=== PATIENT | female | born 2005 | race African-American/Black ===

== ENCOUNTER 2023-11-17 10:01 | Inpatient (IN) | payer BC, SELFPAY ==
[2023-11-16 20:24] VITALS: BP 141/104
--- NOTE | 2023-11-16 20:40 | ED.GENMED ---
History of Present Illness
General
Chief Complaint: Overdose Intentional
Source: patient
Exam Limitations: none
Time Seen by Provider: 11/16/23 20:29
Nursing documentation reviewed up to this point in time: agreed with
History of Present Illness
History of Present Illness:
18-year-old female presents emergency room complaining of overdose of Concerta 15 x 27mg pills, total of 405 mg at 5 pm. Complains of feeling tired. This was a suicide attempt, for which she has had prior. She took her normal medications, Effexor
150 mg and Abilify, and her normal dose of Concerta at 8 AM.
Past History
Past History
ED Past Medical History: Psychiatric (ADHD, bipolar, anxiety, depression)
ED Past Surgical History: None
Social History
Tobacco: Non-smoker
Alcohol: None
Drug: None
Living: with family
Review of Systems
Review of Systems
Allergies reviewed?: Yes
All Other Systems: Not applicable
Constitutional: Reports fatigue
EENT: Reports no symptoms
Respiratory: Reports no symptoms
Cardiac: Reports no symptoms
ABD/GI: Reports no symptoms
: Reports no symptoms
Musculoskeletal: Reports no symptoms
Skin: Reports no symptoms
Neurological: Reports no symptoms
Endocrine: Reports no symptoms
Hematologic/Lymphatic: Reports no symptoms
Psychiatric: Reports no symptoms
Phy Exam
Physical Exam
Physical Exam:
Physical Exam
General: no apparent distress, not acutely ill
Neck: supple. no meningeal signs. normal posterior pharynx
Heart: s1/s2 tachycardia, regular rhythm, no murmur. equal radial
pulses.
HEENT: Pupils equal round reactive to light, EOMI
Lungs: no acute respiratory distress. clear bilaterally
Abdomen: normal bowel sounds. not tender. no CVAT
Neuro: alert and oriented. no focal neurological deficits cranial nerves II through XII intact
Skin: no rash
Psychiatric: well kept. interactive and cooperative
Extremities: no edema. no calf tenderness. negative homans. good distal pulses
Course
Orders/Labs/Results
Orders:
Orders
11/16/23 20:32
Electrocardiogram (*1) Stat
Reason for Study: Other
Other Reason for Exam: overdose
EKG- Treatment ONCE
Acetaminophen Urgent
Alcohol Urgent
Complete Blood Count/With Diff Urgent
Comprehensive Metabolic Panel Urgent
HCG, Serum Qualitative Screen Urgent
Salicylate Urgent
11/16/23 20:33
Electrocardiogram (*1) Urgent
Reason for Study: Other
Other Reason for Exam: overdose
Urine Drug Abuse Screen Urgent
Test Result ONCE
11/16/23 20:34
Cardiac Monitoring- Treatment ONCE
IV Insert/Care/Rem.- Treatment PRN
11/16/23 20:55
0.9% Sodium Chloride 1000 ml [Nss] 1,000 ml IV BOLUS
Lorazepam [Ativan] 1 mg IV NOW STA
Vital Signs
Initial and Last Documented VS:
Initial Vital Signs
Temp Pulse Resp BP Pulse Ox
99.7 F 119 20 141/104 98
11/16/23 20:24 11/16/23 20:24 11/16/23 20:24 11/16/23 20:24 11/16/23 20:24
Last Documented Vital Signs
Temp Pulse Resp BP Pulse Ox
99.7 F 119 20 141/104 98
11/16/23 20:24 11/16/23 20:24 11/16/23 20:24 11/16/23 20:24 11/16/23 20:24
MDM/Problems Addressed
Differential Diagnosis Includes:
suicide attempt, methyphenidate overdose
MDM/Problems Addressed:
18 yo female with methylphenidate overdose. Patient with tachycardia. Discussed with toxicology, recommends IV fluids, Ativan and admission.
Chronic conditions affecting care: Psychiatric illness (Depression, bipolar, ADHD)
Acute Exacerbation and/or Progression of Chronic Illness: Psychiatric illness (Depression, bipolar, ADhd)
*Pulse Oximetry
Patient hypoxic: no
*EKG
Interpreted by ED Provider?: Yes
EKG Intrepretation Date: 11/16/23
EKG Intrepretation Time: 20:36
Interpretation: abnormal
Comparison EKG: no comparison EKG present
Heart Rate: 120
Rate: tachycardiac
Rhythm: sinus tachycardia
Pierson: normal axis
Interval: normal interval
QRS Pattern: normal QRS
Ischemia: no ischemia
*Line Up Machine Operator Interpretation
Rate: tachycardiac
Interpretation: abnormal
Heart Rate: 115
Rhythm: sinus tachycardia
*Critical Care Note
Total Time (30-74mins, 75-104mins- exclusive of procedures): 30
comment:
Critical care statement: A total of 30 minutes of critical care time was provided for this patient. This includes management of unstable vital signs, evaluation of the patient at bedside, reviewing the patient's pertinent medical records, discussion
with consultants, review of old EKGs and review of pertinent medical records. This time with separate from time utilized to perform the aforementioned documented procedures
Patient Management
Social determinants of health affecting care: Living situation and Strong social support
Discussion with other providers: Hospitalist and Clerk To Justice (Toxicology Dr Peng)
Escalation/DeEscalation of care consider admission/obs:
admit to ICU indicated
ED Attending Note
-
Portions of this chart may have been created with voice recognition software.� Occasional wrong word or��sound alike� substitutions may have occurred due to the inherent limitations of voice recognition software.
Discharge Plan
Departure
Admit to: ICU
Presentation/result/management discussed w/ accepting MD/DO: Hospitalist
Patient with high blood pressure during this ER visit?: Yes
Condition: Good
Discharge Problem:
Overdose of methylphenidate, Regular sinus tachycardia
Prescriptions:
No Action
venlafaxine 150 mg capsule,extended release 24hr
150 mg PO DAILY
methylphenidate HCl 27 mg Tablet Extended Release 24hr
27 mg PO DAILY
Patient Comments:
11/16/2023: last filled 11/15/23, 15 tabs [facility]
aripiprazole 10 mg tablet
10 mg PO DAILY
Interventions
Interventions:
*Risk Screen - Suicide Last Done: 11/16/23 20:55
*General Assessment Last Done: 11/16/23 20:55
*Neglect/Abuse Screening Last Done: 11/16/23 20:55
*ED COVID-19 Vaccine History Last Done: 11/16/23 20:55
Discharge Date and Time
Print Language: TURKMEN
[2023-11-16 20:53] VITALS: BP 125/82
[2023-11-16 20:54] VITALS: BMI 27.5
[2023-11-16 21:00] VITALS: BP 123/81
[2023-11-16] MEDS: NSS 1000 IV (21:00)
[2023-11-16] MEDS: ATIVAN 1 MG IV (21:00)
[2023-11-16 21:07] LABS: % Basophils 0.5 % (0-2); % Eosinophils 0.4 % (0-6); % Immature Granulocytes 0.4 % (0-0.5); % Lymphocytes 35.1 % (20.5-51.1); % Monocytes 5.3 % (1.7-9.3); % Neutrophils 58.3 % (42.2-75.2); Absolute Basophils 0.1 10^3/uL (0-0.2); Absolute Lymphocytes 3.3 10^3/uL (1.2-3.4); Absolute Monocytes 0.5 10^3/uL (0.1-0.6); Absolute Neutrophils 5.5 10^3/uL (1.4-6.5); Hematocrit 39.1 % (37.0-47.0); Hemoglobin 13.5 g/dL (12.0-16.0); Mean Corp Hgb Conc. 34.5 g/dL (33.0-37.0); Mean Corpuscular Hgb 29.9 pg (27.0-31.0); Mean Corpuscular Volume 86.7 fL (81.0-99.0); Nucleated Red Blood Cells % 0 %; Platelet Count 343 10^3/uL (130-400); Red Blood Cell Count 4.51 10^6/uL (4.20-5.40); Red Cell Dist. Width 12.9 % (11.5-14.5); White Blood Cell Count 9.4 10^3/uL (4.8-10.8)
[2023-11-16 21:30] LABS: ALT (SGPT) 21 U/L (0-35); AST (SGOT) 34 U/L (14-36); Acetaminophen < 10 ug/ml (10-30); Albumin 5.3 g/dl (3.5-5.0); Alkaline Phosphatase 98 U/L (38-126); Blood Urea Nitrogen 8 mg/dl (7-17); Calcium 10.6 mg/dl (8.4-10.2); Carbon Dioxide 25 mmol/L (22-30); Chloride 103 mmol/L (98-107); Estimated Creatinine Clearance 98 ml/min; Glucose 105 mg/dl (70-99); Potassium 3.4 mmol/L (3.5-5.1); Salicylate < 1.0 mg/dl (2.0-20.0); Sodium 142 mmol/L (135-145); Total Bilirubin 0.6 mg/dl (0.2-1.3); Total Protein 8.1 g/dl (6.3-8.2); eGFR > 60.00
[2023-11-16 21:34] LABS: Alcohol None Detected
[2023-11-16 21:47] LABS: HCG, Serum Qualitative Screen Negative
[2023-11-16 22:00] VITALS: BP 118/80
--- NOTE | 2023-11-16 22:23 | HPS.HSE ---
Family Physician
-
Family Physician: NOT KNOW UNKNOWN - PT DOES
Chief Complaint
-
overdose
History of Present Illness
18-year-old female past medical history of suicide attempts, ADHD, bipolar disorder, anxiety/depression, presenting with intentional overdose of methylphenidate by taking 15 of 27 mg pills at 5 PM. She had an argument with her family because she
wants to attend a different college and does not want to live at home. She denied overdosing on aripiprazole or venlafaxine. Her psychiatrist recently increased the dose of methylphenidate within the past week. She regularly has suicidal thoughts
but states that her mood has not been too bad. Her psychiatrist is Dr. Swain.
She feels tired at this time but denies any chest pain. She feels short of breath when she was crying earlier. She also had some dizziness and fatigue. She denies any palpitations. She denies any tremors. Denies any nausea vomiting or diarrhea
or abdominal pain.
She smokes marijuana few times a week. She drinks alcohol twice a week sometimes up to 3-4 drinks at a time. She denies smoking.
Medical History
Past Medical History
Past Medical History: Reports Other (suicide attempts, ADHD, bipolar disorder, anxiety/depression)
Past Surgical History: Reports None
Social History
Tobacco: Non-smoker
Alcohol: Occasional
Drug: Marijuana
Family History
Family History: Not pertinent
Allergies / Home Medications
Allergies reflects when Allergies were last updated in [employer].
Home Medications with original date entered in [employer]
Allergy/Medication List:
Allergies
Allergy/AdvReac Type Severity Reaction Status Date / Time
No Known Allergies Allergy Verified 11/16/23 20:24
Home Medications
aripiprazole 10 mg tablet 10 mg PO DAILY 11/16/23
methylphenidate HCl 27 mg tablet,extended release 24 hr 27 mg PO DAILY 11/16/23
venlafaxine 150 mg capsule,extended release 24 hr 150 mg PO DAILY 11/16/23
Review of Systems
-
History Source: Patient
A 12 point ROS was completed and negative except as noted: Yes
Constitutional: Reports No Symptoms
EENT: Reports No Symptoms
Respiratory: Reports No Symptoms
Cardiac: Reports No Symptoms
Abdomen/GI: Reports No Symptoms
: Reports No Symptoms
Musculoskeletal: Reports No Symptoms
Skin: Reports No Symptoms
Neurological: Reports No Symptoms
Endocrine: Reports No Symptoms
Hematologic/Lymphatic: Reports No Symptoms
Psych: Reports No Symptoms
Physical Exam
Vital Signs
Vital Signs
Temp Pulse Resp BP Pulse Ox
99.7 F 115 17 118/80 100
11/16/23 20:24 11/16/23 22:00 11/16/23 22:00 11/16/23 22:00 11/16/23 22:00
Physical Exam
General: Well Developed, Well Nourished and No Apparent Distress
HEENT: NormoCephalic, Moist mucous membranes and Atraumatic
Respiratory: Clear
Cardiac: S1/S2 and Regular Rhythm; No Murmur or Rub
GI: Soft, Non Tender, Non Distended and Normal Bowel Sounds; No Organomegaly
Rectal: Deferred by Provider
Musculoskeletal: No Clubbing, No Cyanosis and No Edema
Skin: No Rash
Neuro: Nonfocal/grossly intact
Laboratory Results
-
11/16/23 20:51
11/16/23 20:51
Laboratory Results
Total Bilirubin 0.6 mg/dl (0.2-1.3) 11/16/23 20:51
AST 34 U/L (14-36) 11/16/23 20:51
ALT 21 U/L (0-35) 11/16/23 20:51
Alkaline Phosphatase 98 U/L (38-126) 11/16/23 20:51
Data Reviewed
-
Lab Data: Labs Reviewed by me
Old Records: Reviewed
Impression/Plan
-
IMPRESSION:
PLAN:
# Methylphenidate overdose suicide attempt
-Alcohol level negative
-Tylenol, salicylates negative
-UDS pending
-EKG shows sinus tachycardia, T wave inversions in leads V1 to V3, no prior EKG available
-Check troponin
-[facility] recommended IV fluids, and as needed Ativan
-Monitor for seizures, agitation
-One-to-one sitter
-Psychiatry consulted
# Hypokalemia secondary to methylphenidate overdose
-Replete potassium
History of ADHD
-Hold methylphenidate
Bipolar/anxiety/depression
-Hold aripiprazole, venlafaxine
Full code
DVT prophylaxis�SCDs
Regular diet
[2023-11-16] MEDS: KCL 40 MEQ PO (22:33)
[2023-11-16 23:00] VITALS: BP 139/85
[2023-11-16 23:03] LABS: Amphetamines Negative (Negative); Barbiturates Negative (Negative); Benzodiazepines Negative (Negative); Buprenorphine Negative (Negative); Cocaine Negative (Negative); Methamphetamines Negative (Negative)
[2023-11-16 23:04] LABS: Marijuana Positive (Negative); Methadone Negative (Negative); Opiates Negative (Negative); Phencyclidine Negative (Negative); Tricyclic Antidepressants Negative (Negative)
--- NOTE | 2023-11-16 23:50 | PTCARENOTE ---
rec`d pt from ED at 2330. pt very pleasant. pt still states she is suicidal. pt placed on a 1-1. pt can be tearful at times. pt states she smokes marijuana about 4 times a week. also drinks alcohol a few times a month. last alcoholic beverage was
nov 11. last time pt smoked marijuana was date of admission, nov 15. aaox3. ST on monitor. rt AC 20 placed in ED. NS running at 100. no edema. RA, clear lungs, POX 98%. skin c/d/i. pt`s mother at bedside. call hodges in reach, safe environment
maintained.
[2023-11-17] VITALS (17 sets, daily range): BP systolic 105–130; BP diastolic 57–89; BMI 27.9
[2023-11-17] MEDS: NSS 1000 IV ×2 (00:52→10:11)
--- NOTE | 2023-11-17 04:00 | PTCARENOTE ---
pt reassessed. no changes in pt assessment. call hodges in reach. brother at bedside. 1-1 also at bedside.
[2023-11-17 05:06] LABS: INR 1.01; PT 13.3 Sec (11.4-14.6)
[2023-11-17 05:10] LABS: % Basophils 0.5 % (0-2); % Eosinophils 0.1 % (0-6); % Immature Granulocytes 0.3 % (0-0.5); % Lymphocytes 21.9 % (20.5-51.1); % Monocytes 5.3 % (1.7-9.3); % Neutrophils 71.9 % (42.2-75.2); Absolute Basophils 0.1 10^3/uL (0-0.2); Absolute Lymphocytes 2.1 10^3/uL (1.2-3.4); Absolute Monocytes 0.5 10^3/uL (0.1-0.6); Hematocrit 37.1 % (37.0-47.0); Mean Corpuscular Hgb 29.8 pg (27.0-31.0); Mean Corpuscular Volume 85.1 fL (81.0-99.0); Nucleated Red Blood Cells % 0 %; Platelet Count 350 10^3/uL (130-400); Red Blood Cell Count 4.36 10^6/uL (4.20-5.40); White Blood Cell Count 9.8 10^3/uL (4.8-10.8)
[2023-11-17 05:26] LABS: ALT (SGPT) 19 U/L (0-35); AST (SGOT) 33 U/L (14-36); Alkaline Phosphatase 81 U/L (38-126); Blood Urea Nitrogen 8 mg/dl (7-17); Calcium 10.3 mg/dl (8.4-10.2); Carbon Dioxide 21 mmol/L (22-30); Chloride 106 mmol/L (98-107); Estimated Creatinine Clearance 112 ml/min; Glucose 115 mg/dl (70-99); Potassium 4.2 mmol/L (3.5-5.1); Sodium 137 mmol/L (135-145); Total Bilirubin 0.8 mg/dl (0.2-1.3); eGFR > 60.00
--- NOTE | 2023-11-17 07:20 | PTCARENOTE ---
recd 1:1 family bedside. assessed, questions answered, plans of care reviewed. pupils large, 5 mm, reactive. no distress.
--- NOTE | 2023-11-17 09:39 | CON.INTV ---
Consultation
Consultation Request
Date/Time Consultation Requested: 11/16/20232330
Date/Time Consultation Performed: 11/17/2023821
Requesting Provider: ROSEY Hernandez
Performing Provider: Asad Dyer MD
Reason for Consultation: Methylphenidate overdose
Medical History
-
Chief Complaint: 'I tried to kill myself'
History of Present Illness:
18-year-old female with a past medical history of ADHD, depression/bipolar disorder who presents with suicidal attempt. She reportedly took 15 pills of 27mg Concerta 5 PM prior to arrival. She purposely took it trying to kill herself. She was
tachycardic to 122 in triage, breathing at 20-24 breaths/min, BP 141/104, afebrile to 99.7 �F and saturating 98% on room air. Labs showed hypokalemia to 3.4, glucose 105, beta-hCG negative. UDS showed positive marijuana and negative alcohol level.
ER spoke with police reserves commander, Dr. Peng -recommended IVF, prn Ativan and admission with close monitoring. She was admitted to the ICU for further monitoring, and critical care services consulted for additional management/recommendations.
Pt was seen and evaluated this morning. HR 82, BP 130/89. On RA breathing comfortably. On NS at 100cc/hr. Pt's mother , Vivienne, at bedside. All questions were answered. Patient currently feels well, denies shakiness, headache, shortness of
breath, chest pain, nausea, fevers or chills. Earlier she endorsed dizziness and fatigue.
PMHx: ADHD, anxiety, bipolar disorder
PSHx: Non-contributory
Past Medical History
Past Medical History: Other (Above as per HPI)
Past Surgical History: Other (Above as per HPI)
Social History
Tobacco: Non-smoker
Alcohol: Occasional
Drug: Marijuana
Personal: Single
Living: With Family
Family History
Family History: Reviewed & Not Pertinent
Allergies / Home Medications
Allergies
Allergy/AdvReac Type Severity Reaction Status Date / Time
No Known Allergies Allergy Verified 11/16/23 20:24
Home Medications
�Medication �Instructions �Recorded �Confirmed �Last Taken �Type
aripiprazole 10 mg tablet 10 mg PO DAILY Mental 11/16/23 11/16/23 Unknown History
Health/Anxiety
methylphenidate HCl 27 mg 27 mg PO DAILY Mental 11/16/23 11/16/23 Unknown History
tablet,extended release 24 hr Health/Anxiety
venlafaxine 150 mg 150 mg PO DAILY Mental 11/16/23 11/16/23 Unknown History
capsule,extended release 24 hr Health/Anxiety
Review of Systems
-
History Source: Patient
All other systems: Negative unless noted (12 point ROS performed and is negative unless mentioned above.)
Vitals / Labs / Diagnostic Testing
Vital Signs
Temp Pulse Resp BP Pulse Ox
98.9 F 100 20 118/69 98
11/17/23 07:45 11/17/23 07:15 11/17/23 07:15 11/17/23 07:00 11/17/23 07:39
Lab Data
11/17/23 04:43
11/17/23 04:43
Laboratory Results
11/17/23
04:43
PT 13.3
INR 1.01
APTT 27.0
Diagnostic Testing:
Physical Exam
-
HEENT: Normocephalic, Anicteric and Moist Mucous Membranes
Cardiovascular: S1/S2 and Peripheral Edema (Negative)
Respiratory: Clear, Wheeze (Negative), Rales (Negative), Rhonchi (Negative) and Non-Labored Respirations
GI: Soft, Non Distended, Non Tender and Normal Bowel Sounds
Neurology: AO x 3 and Tremors (Negative)
Skin: Warm and Dry
General: Respiratory Distress (Negative), Comfortable, Fever (Negative), Chills (Negative) and Sweats (Negative)
Assessment
-
Assessment: 18-year-old female with a past medical history of ADHD, depression/bipolar disorder who presents with suicidal attempt. She reportedly took 15 pills of 27mg Concerta 5 PM prior to arrival. She purposely took it trying to kill herself.
She was tachycardic to 122 in triage, breathing at 20-24 breaths/min, BP 141/104, afebrile to 99.7 �F and saturating 98% on room air. Labs showed hypokalemia to 3.4, glucose 105, beta-hCG negative. UDS showed positive marijuana and negative
alcohol level. ER spoke with police reserves commander, Dr. Peng -recommended IVF, prn Ativan and admission with close monitoring. She was admitted to the ICU for further monitoring, and critical care services consulted for additional
management/recommendations.
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
Impression:
#Suicide attempt with intentional overdose of methylphenidate ER
#Marijuana use
#ADHD on Concerta
#Anxiety
#Bipolar disorder
Plan:
- Patient doing well this morning however still with occasional tachycardia with heart rate >100
- Give metoprolol prn with goal HR<100; keeping MAP>65
- Continue 1:1 at bedside
- prn Ativan
- Ok to DC IVF as she has regular diet ordered
- 1/2 life of Concerta is 8-12 hours, and she took her 15 pills at 5PM on 11/16/2023 --> Concerta should be out of her system in 48 hrs; would hold methylphenidate for now
- Psych consulted - recs appreciated; patient may benefit from inpatient psych after she is medically stabilized
- Maintain SpO2 >90-94%
- Replete electrolytes with K>3.5, Mg>1.8
- Maintain euglycemia with goal BG 140-180
- prn nebulized bronchodilators � patient currently not bronchospastic
- Incentive spirometer encouraged
- DVT ppx: LMWH
Patient stable for downgrade out of ICU to telemetry. Calibration Tester/Pulmonary service will now sign off. Thank you for allowing us to be involved in the care of this patient. Please reconsult if there are any additional questions/concerns, or if
patient's respiratory status deteriorates.
Total time spent today was 55 minutes for this encounter. Time includes reviewing laboratory test/imaging results, reviewing pertinent medical records, obtaining and reviewing medical history, performing an appropriate exam, ordering medications,
tests and procedures. Time also includes documentation of this encounter, coordinating patient care and communicating with other healthcare professionals. Total time does not include separately billed tests performed on this date of service.
--- NOTE | 2023-11-17 09:44 | PTCARENOTE ---
Dr. Gurrola in to see pt, awake, talkative, family visiting. HR with activity 120s, resting 100.
--- NOTE | 2023-11-17 12:09 | W.PN.HOSP.TC ---
Today's Communication/Plan
-
tele transfer
psych eval
Assessment / Plan
Assessment / Plan
1. Methylphenidate overdose - intentional
Suicidal ideation
-Alcohol, Tylenol, salicylates negative
-UDS positive for marijuana
-EKG shows sinus tachycardia, T wave inversions in leads V1 to V3, no prior EKG available
-Trop neg.
-[facility] toxicology recommended IV fluids and as needed Ativan
-One-to-one sitter
-Psychiatry evaluation requested
2. Sinus tachycardia
-from methylphenidate
-asymptomatic, Lopressor initiation held for now.
3. Hypokalemia secondary to methylphenidate overdose
-Replete potassium
4. History of ADHD
-Hold methylphenidate
5. Bipolar/anxiety/depression
-Hold aripiprazole, venlafaxine unitl psychiatry evaluation
Full code
DVT prophylaxis�SCDs
Transfer to tele.
Anticipated Discharge: Within 24 hours
Subjective/Interval History
-
Date of Service: November 17, 2023
resting comfortably in bed
denies chest pain. have minor feeling of palpitation
no dizziness
no acute issues reported overnight
Objective Data
-
Labs:
Laboratory Results
11/17/23
04:43
WBC 9.8
Hgb 13.0
Hct 37.1
Plt Count 350
PT 13.3
INR 1.01
APTT 27.0
Sodium 137
Potassium 4.2
Chloride 106
Carbon Dioxide 21 L
BUN 8
Creatinine 0.7
Glucose 115 H
Calcium 10.3 H
Total Bilirubin 0.8
AST 33
ALT 19
Alkaline Phosphatase 81
Vital Signs:
Vital Signs
Temp Pulse Resp BP Pulse Ox
98.9 F 74 22 127/77 97
11/17/23 07:45 11/17/23 11:56 11/17/23 07:30 11/17/23 11:56 11/17/23 11:58
I&O
11/16/23 11/17/23 11/18/23
06:59 06:59 06:59
Intake Total 400 / 500 620 / 620
Output Total 400 / 400 600 / 600
Balance 0 / 100
Review of Systems
-
Respiratory: Reports No Symptoms
Cardiac: Reports Palpitations; Denies Chest Pain or Diaphoresis
Abdomen/GI: Reports No Symptoms
Physical Exam
-
General: Negative Appears in Distress
HEENT: Negative Oxygen
Cardiac: Regular Rhythm and Tachycardic; Negative Murmur
Neuro: Awake, Alert, Oriented and No Motor Deficits
Psych: Calm
--- NOTE | 2023-11-17 12:56 | PTCARENOTE ---
family visiting, talkative, cooperative, pleasant. ate lunch, no change in assessment otherwise. Heart rate 80s at rest, 115 range when ambulating.
--- NOTE | 2023-11-17 14:05 | CM ---
Patient seen at bedside with mother and 1:1 present in ICU. 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 Patient stated that she does have a Psychiatrist and that her PCP is Dr. Gilbert. [facility] [place]. Patient wants to go home, Psychiatrist has seen patient but plans to return to complete review. Patient expressed boredom and CM spoke with [facility] office who provided patient with coloring pages and crayons. CM awaiting
recommendations from Psych. Patient has been to a psych facility and did not feel it was helpful. Possible inpatient recommendation would be to [facility] per psychiatrist.
Plan; pending psych assessment
--- NOTE | 2023-11-17 14:51 | CON.MD ---
Addendum entered and electronically signed by Heather Gurrola MD 11/17/23 16:10:
called stuart sommer [phone]
Original Note:
Consultation - Medical
-
patient seen chart reviewed. this evaluation was done in two parts. she was seen in the morning alone and with her mother. she was then seen again at the end of the day to continue discussion along with mother.. the patient is a 18 year old who
overdosed with 15 27 mg concerta tablets yesterday. the patient reported a conflict w family over whether she would live at home when the semester starts . she has completed two years of college and is transferring to [employer]. she says she did some
research prior to decision as to which medication to use to commit suicide. she did want to . she said her life was 'really exhausting'.she for the past two years has not felt 'pure riana'. she added that her life is just 'up and down and it's
gonna be up and down for the rest of my life and i don't want to do that...' but then she added but, 'i want to live.' she has attachments to people, family and friends, but in the end she said she did not know if these attachments were meaningful
enough to make her want to life. she was talking to her sister after the ingestion and started to feel bad about doing this to her family and confessed whereupon she was seen in the er and admitted. the patient has experienced depression since
middle school. she really did not seek treatment until about two years ago. she had a therapist for much of that time and about a year ago saw a nurse practitioner who prescribed lexapro which she took for a while. it was not particularly helpful
and she [facility]. she then had suicidal thoughts and cut herself in the spring of this year prompting in patient at [facility] where she started seeing dr sommer who prescribed current meds effexor xr
150 mg abilify 10 mg and concerta 27 mg. she said she has always struggled with attention and focus but particularly when he depression worsened. she reports sleep and appetite are okay. she says she does have energy. she can enjoy some
activities but there is still underlying sadness. she has had manic sx. she had a period recently where she did not sleep at all for 48 hours. she experienced racing thoughts and a feeling of euphoria which gave way eventually to depression which
she is currently experiencing.
past psych hx see above. she has had one psych admit one to [facility] and some out patient rx. hospital and iop at [facility]. she describes that she felt exceedingly traumatized by the hospitalization at [facility]. she was not physically or sexually
traumatized but she felt imprisoned. she did not feel the staff were at all therapeutic. she said tech staff would make comments that were upsetting and even seeing that the patients were upset did not elicit therapy but rather 'medication'. she
said she saw her psychiatrist only twice for a short time and alleges she had no individual therapy. she wanted to leave but said she was threatened w commitment. [facility]. she has a psychiatrist dr sommer and a therapist
etienne tran.
medical hx see above re overdose. generally healthy. some hx of orthopedic injuries due to sports. qtc is okay labs look ok tox screen + mj
family hx adopted from [place] at 13 mos
substance abuse cannabis daily alcohol about six drinks weekly in two sittings patient denies that she has ever experienced etoh wd sx.
social hx resides w mom and dad. adopted from [place] at 13 months old. little known about her life prior to adoption. dad is a contractor. mom is a speech therapist twin sibs age 26 and one sib 24 they are her best friends although she does
have friends she feels close to. completed two years of college. she does feel parents are supportive but she is in conflict over living arrangement. she wants to transfer to [employer] and parents told her she needs to give up her apartment in [facility]
and live at home and attend community college for a course or two to see how it goes before they will pay for an apartment for her.
mse alert ox3 cooperative pleasant speech and thought process good no psychosis it is my impression she is depressed although superficially she can appear fairly well. she is not denying suicidal thoughts although at the moment also says 'i don't
think i would do it.' she said she wants to live but sometimes feels overwhelmed and her will to live wavers. . the patient does say she has had suicidal thoughts since her early teens and when she acted upon it it was related to the aforementioned
appartment issue which was the straw that broke the camels back. intelligence average insight fair judgment lacking
dx bipolar disorder unspecified ? ptsd r/o cannabis use d/o r/o etoh abuse d/o
plan in patient hosp would be my preference but patient and her mother are very much opposed to it. patient feels that she was traumatized by recent stay at [facility] and rehosp would only extend and exacerbate that trauma. she goes so far as to say
the trauma of that stay was a part of her recent suicide attempt. patient is not medically cleared yet and she and mom agree to on going discussion of disposition which will be continued tomorrow. in the meantime continue one to one. i will look
into the possibility of php at [facility] starting on tuesday am. wll also try and contact out pt psychiatrist dr sommer.
--- NOTE | 2023-11-17 16:52 | PTCARENOTE ---
Discussion between pt, Dr. Gurrola and pts mother. Pt upset, support given, presently pt sleeping or resting eyes closed, not interested in talking with family or staff at this time. awaiting tele bed.
--- NOTE | 2023-11-17 18:05 | TRANSFER ---
taken via wc with family to new room 431, with all belongings, remains tele. settled in room, 1:1 continues. report to next RN.
[2023-11-18 03:40] VITALS: BP 98/48
--- NOTE | 2023-11-18 09:20 | W.PN.HOSP.TC ---
Today's Communication/Plan
-
possible d/c post psych eval
d/c tele
Assessment / Plan
Assessment / Plan
1. Methylphenidate overdose - intentional
Suicidal ideation
-Alcohol, Tylenol, salicylates negative
-UDS positive for marijuana
-EKG shows sinus tachycardia, T wave inversions in leads V1 to V3, no prior EKG available
-Trop neg.
-[facility] toxicology recommended IV fluids and as needed Ativan
-One-to-one sitter
-Psychiatry evaluated and recommended inpatient evaluation, family/pt prefers outpt treatment, psychiatry will re-discuss with family/pt again today
2. Sinus tachycardia - resolved
-from methylphenidate
3. Hypokalemia secondary to methylphenidate overdose
-Replete potassium
4. History of ADHD
-Hold methylphenidate
5. Bipolar/anxiety/depression
-Hold aripiprazole, venlafaxine unitl psychiatry evaluation
Full code
DVT prophylaxis�SCDs
Anticipated Discharge: Today
Subjective/Interval History
-
Date of Service: November 18, 2023
no complains overnight
denies of having any palpitation/chest pain
Objective Data
-
Vital Signs:
Vital Signs
Temp Pulse Resp BP Pulse Ox
97.4 F 85 18 98/48 95
11/18/23 03:40 11/18/23 03:40 11/18/23 03:40 11/18/23 03:40 11/18/23 03:40
I&O
11/17/23 11/18/23 11/19/23
06:59 06:59 06:59
Intake Total 400 / 500 1790 / 1790
Output Total 400 / 400 1800 / 1800
Balance 0 / 100 -10 / -10
Review of Systems
-
Respiratory: Reports No Symptoms
Cardiac: Reports No Symptoms
Abdomen/GI: Reports No Symptoms
Physical Exam
-
General: Negative Appears in Distress
HEENT: Negative Oxygen
Cardiac: Regular Rhythm and Tachycardic; Negative Murmur
Neuro: Awake, Alert, Oriented and No Motor Deficits
Psych: Calm
--- NOTE | 2023-11-18 10:08 | CM ---
Addendum entered by Erinn Gimenez 11/18/23 13:38:
Plan is to home and follow up with PHP through [facility].
Original Note:
Chart reviewed and case specialist will await final recommendation from psychiatry on best plan for patient.
Plan; To await updated plan for patient.
[2023-11-18 11:35] VITALS: BP 144/69
--- NOTE | 2023-11-18 12:33 | W.PN.UPDATE ---
Addendum entered and electronically signed by Heather Gurrola MD 11/18/23 12:47:
i tried to impress upon patient and family that only the patient can guarantee safety. in patient hospital yesterday would have been my first choice. family and patient set against hospitalization feeling she would be retraumatized. while she
seems better today that is not a guarantee either. family should monitor closely and calling crisis if there are concerns.
Original Note:
Update Note
Progress Note Update
patient seen chart reviewed. i spoke last evening and today with patient's out pt provider mr keshav sommer stuart at [facility]. spoke as well with patient cm and met with patient individually as well as with her parents and brother after the
individual meeting with patient. a number of issues were addressed with patient. she is today not espousing suicidal thoughts. she does acknowledge that her life is stressful and spoke in more depth about the stressors she was dealing with before
the ingestion (incidentally there was no amphetamine in the uds which the patient cannot explain. she said she did take '14' concerta tabs and her prescriber did give her #15). she considers herself to be bisexual and was having difficulty
negotiating relationships with friends and with potential partners. she was also struggling at school yet wanted to remain in her appt in [place] until parents said they would no longer pay for it. she does have a job for the summer and sees
self as eventually getting a job that will last through the year so she can pay herself for an appt in the city. her anger at parents has calmed somewhat as she accepts that for the near future she will be at home. she says she will call crisis
and talk to someone...family.....if she should have suicidal thoughts over the weekend and she does agree to go to partial hospital starting tuesday am. while no one can predict the future with certainty at present weighing the pros and cons the
patient and her family agree to this disposition. the patient and family are opposed to psych hosp feeling the recent hosp at [facility] only served to traumatize her and make her feel worse. i did ask her family to handle patient's medications and
also to remove meds from the family med cabinet as even everyday meds we consider safe are not safe in overdose (eg tylenol). patient's out pt dog trainer will call her later today to touch base with her and he will see her once while she is in [facility] to
keep up their connection. re meds. will taper effexor by 37.5 mg q day ...she should decrease to 112.5 mg for four days then 75 mg for four days and then 37.5 mg for four days. she is having some dizziness likely secondary to effexor wd. she can
go a bit slower if this persists. this will require about 30 tabs which i will ask the hospitalist to send electronically. she should continue the abilify 10 mg for now. she is gaining weight from abilify. i will discuss w stuart at [facility]
considering starting lithium or latuda when she is in php. lamictal could be another alternative. she will likely be dc today. she should show up at [facility] at 9 am on tuesday .
--- NOTE | 2023-11-18 14:32 | W.DCSUMMARY ---
Discharge Summary
Discharge Data
Date of Admission: 11/17/23
Date of Discharge: 11/18/23
-
Pending Results: No
Hospital Course
Discharging Physician : Dr Martin Ness
Disposition : Home
Primary care physician : None
Principal Discharge diagnosis :
Intentional overdose of prescription medication
Suicidal ideation
Chronic Discharge diagnosis :
Depression/bipolar disorder
History of attention deficit hyperactivity disorder
History of suicidal ideation
Hospital Course :
Patient is a 18-year-old female with above-mentioned past medical history was brought into ER after patient intentionally overdosed on her prescription methylphenidate. Patient have history of depression and previous suicidal ideation and was
stressed with friction with parents over college related decisions. Patient took 14 pills of 27 mg methylphenidate. Patient was brought into ER after this. Case was discussed with [facility] who recommended monitoring in hospital on
telemetry and IV hydration. Urine drug screen was checked which was surprisingly negative for any amphetamine analogs. Nonetheless patient was tachycardic although remains largely asymptomatic. Psychiatry was involved in care and was following
along. After medical improvement possible plan for inpatient psych hospitalization was discussed although patient and family prefer for patient to be discharged home. Patient was taken off of methylphenidate. Patient also on high doses of Effexor
with psychiatry recommended to wean slowly patient off of. Patient will follow-up with outpatient therapy center. Patient has been provided contact number of crisis center and will contact them if have any further suicidal ideation.
Important imaging findings :
None
Procedure findings :
None
Discharge Plan
-
Patient Disposition: Home (Routine Discharge)
Discharge Diagnosis/Procedures: Intentional overdose
Condition: Fair
Diet: Regular
Activity: As tolerated
Driving Restrictions: As prior to admission
Bathing Restrictions: OK to Shower
Referrals:
UNKNOWN - PT DOES,NOT KNOW [Family Provider] -
Prescriptions:
New
venlafaxine [Effexor XR] 37.5 mg capsule,extended release 24hr
See Rx Instructions .ROUTE .COMPLEX Qty: 24 0RF
Rx Instructions:
Take 3 caps daily for 4 Days THEN
Take 2 caps daily for 4 Days THEN
Take 1 cap daily for 4 Days
Continued
aripiprazole 10 mg tablet
10 mg PO DAILY
Discontinued
venlafaxine 150 mg capsule,extended release 24hr
150 mg PO DAILY
methylphenidate HCl 27 mg Tablet Extended Release 24hr
27 mg PO DAILY
Patient Comments:
11/16/2023: last filled 11/15/23, 15 tabs for 15 days from [facility]
Discharge Orders:
Discharge Patient (As Directed); Ordered 11/18/23
Ordered By: Martin Ness
Discharge Date and Time
Print Language: CROATIAN
== END 2023-11-18 14:41 | disposition home or self-care (01) | DRG 918 ==
LOC: 4 WEST ACU 10:01
PROVIDERS: Nurse Practitioner Primary Care; ADMITTING PHYSICIAN Hospitalist; ATTENDING PHYSICIAN Hospitalist; EMERGENCY PHYSICIAN Emergency Medicine; OTHER PHYSICIAN Internal Medicine Critical Care Medicine; OTHER PHYSICIAN Psychiatry & Neurology Psychiatry
DX: T43.632A Poisoning by methylphenidate, intentional self-harm, initial encounter (principal); R53.83 Other fatigue; Y92.9 Unspecified place or not applicable; F31.9 Bipolar disorder, unspecified; F90.9 Attention-deficit hyperactivity disorder, unspecified type; F41.9 Anxiety disorder, unspecified; R03.0 Elevated blood-pressure reading, without diagnosis of hypertension; R00.0 Tachycardia, unspecified; R06.02 Shortness of breath; R42 Dizziness and giddiness; E87.6 Hypokalemia; F12.90 Cannabis use, unspecified, uncomplicated; Z91.51 Personal history of suicidal behavior
CPT/HCPCS: 80053; 80143; 80179; 80306; 82077; 83735; 84484; 84703; 85025; 85610; 85730; 93005; 96361; 96374; 99291